=== PATIENT | male | born 1960 | race Caucasian/White ===

== ENCOUNTER 2019-06-10 14:53 | Outpatient (REF) | payer BC, SELFPAY ==
[2019-06-10 22:24] LABS: COMMENT (LAB VIEW ONLY) 81.21 mg/dL; Microalb ug/mg Crea 20.4 ug/mg Cr
[2019-06-10 22:45] LABS: ALT 33 U/L (16-63); AST 26 U/L (15-37); Albumin 4.4 g/dL (3.4-5.0); Alkaline Phosphatase 80 U/L (46-116); Anion Gap 7.8 mmol/L (3-11); BUN 14 mg/dL (7-18); Bilirubin, Total 0.6 mg/dL (0.2-1.0); CO2 31.2 mmol/L (21.0-32.0); CREATININE 0.78 mg/dL (0.70-1.30); Calcium 9.3 mg/dL (8.5-10.1); Calculated LDL 112 mg/dL; Chloride 103 mmol/L (98-107); Cholesterol 196 mg/dL (50-200); Glucose 101 mg/dL (70-100); HDL Cholesterol 78 mg/dL (40-60); Sodium 142 mmol/L (136-145); TSH 2.19 uIU/mL (0.36-3.74); Total Protein 8.1 g/dL (6.4-8.2); Triglyceride 30 mg/dL (30-150); Vitamin B12 308 pg/mL (193-986)
[2019-06-10 23:13] LABS: Folate > 20.0 ng/mL (8.6-20.0)
[2019-06-12 11:11] LABS: Hepatitis B Surface Ag Negative (Negative)
[2019-06-12 11:13] LABS: Hep B Core Antibody Negative (Negative)
== END 2019-06-10 15:13 ==
LOC: NCHCN 14:53
PROVIDERS: PCP Family Medicine; Visit Provider Nurse Practitioner Family
DX: R31.9 Hematuria, unspecified (principal); I10 Essential (primary) hypertension
CPT/HCPCS: 80053; 80061; 86704; 87340; 82043; 82570; 82607; 82746; 84443; 87086

== ENCOUNTER 2019-08-27 17:34 | Outpatient (REF) | payer BC, SELFPAY ==
[2019-08-27 22:01] LABS: Anion Gap 7.7 mmol/L (3-11); BUN 27 mg/dL (7-18); CO2 32.3 mmol/L (21.0-32.0); CREATININE 0.77 mg/dL (0.70-1.30); Calcium 8.9 mg/dL (8.5-10.1); Chloride 103 mmol/L (98-107); Glucose 87 mg/dL (74-106); Potassium 4.2 mmol/L (3.5-5.1); Sodium 143 mmol/L (136-145); Vitamin B12 439 pg/mL (193-986)
== END 2019-08-27 17:54 ==
LOC: NCHCN 17:34
PROVIDERS: PCP Family Medicine; Visit Provider Nurse Practitioner Family
DX: E53.8 Deficiency of other specified B group vitamins (principal); I10 Essential (primary) hypertension
CPT/HCPCS: 80048; 85027; 82607

== ENCOUNTER 2019-09-02 14:39 | Outpatient (REF) | payer BC, SELFPAY ==
[2019-09-02 22:17] LABS: HGB 13.9 g/dL (13.5-17.5); Mean Corp. HGB Concentration 33.9 g/dL (32.0-36.0); Mean Corpuscular Hemoglobin 34.3 pg (27.0-33.0); Mean Corpuscular Volume 101.2 fL (80-95); Platelet Count 219 x1000/uL (130-400); RBC 4.05 m/cumm (4.50-6.00); RBC Distribution Width 11.8 % (11.8-14.1); White Blood Cell Count 3.52 k/cumm (4.4-10.8)
[2019-09-02 22:42] LABS: BUN 21 mg/dL (7-18); CREATININE 0.65 mg/dL (0.70-1.30); Calcium 9.1 mg/dL (8.5-10.1); Chloride 104 mmol/L (98-107); Glucose 107 mg/dL (74-106); Potassium 4.3 mmol/L (3.5-5.1); Sodium 142 mmol/L (136-145)
== END 2019-09-02 14:59 ==
LOC: NCHCN 14:39
PROVIDERS: PCP Family Medicine; Visit Provider Nurse Practitioner Family
DX: I10 Essential (primary) hypertension (principal); E53.8 Deficiency of other specified B group vitamins
CPT/HCPCS: 80048; 85027

== ENCOUNTER 2020-01-12 18:42 | Outpatient (REF) | payer BC, SELFPAY ==
[2020-01-12 22:09] LABS: HCT 41.4 % (40.0-50.0); HGB 14.2 g/dL (13.5-17.5); Mean Corp. HGB Concentration 34.3 g/dL (32.0-36.0); Mean Corpuscular Hemoglobin 34.3 pg (27.0-33.0); Mean Platelet Volume 10.1 fL (8.0-11.0); Platelet Count 225 x1000/uL (130-400); RBC 4.14 m/cumm (4.50-6.00); RBC Distribution Width 11.7 % (11.8-14.1); White Blood Cell Count 3.68 k/cumm (4.4-10.8)
[2020-01-14 09:51] LABS: HIV-1/2 Ag & Ab Screen Negative (Negative)
[2020-01-14 10:58] LABS: Hepatitis C Ab w Rflx HCV PCR Negative (Negative)
== END 2020-01-12 19:02 ==
LOC: NCHCN 18:42
PROVIDERS: PCP Family Medicine; Visit Provider Nurse Practitioner Family
DX: D72.819 Decreased white blood cell count, unspecified (principal); Z11.4 Encounter for screening for human immunodeficiency virus [HIV]; Z11.59 Encounter for screening for other viral diseases
CPT/HCPCS: 85027; 86803; 87389

== ENCOUNTER 2020-06-13 10:41 | Outpatient (REF) | payer BC, SELFPAY ==
[2020-06-13 21:11] LABS: Absolute Basophil Count 0.02 10^3/uL (0.0-0.2); Absolute Eosinophil Count 0.02 10^3/uL (0.0-0.7); Absolute Lymphocyte Count 0.77 10^3/uL (1.2-3.4); Absolute Monocyte Count 0.16 10^3/uL (0.1-0.8); Absolute Neutrophil Count 1.36 10^3/uL (1.2-6.7); Basophils % 0.9; Eosinophils % 0.9; HCT 40.8 % (40.0-50.0); HGB 13.6 g/dL (13.5-17.5); MCH 33.8 pg (27.0-33.0); MCHC 33.3 % (32.0-36.0); MCV 101.5 fL (80-95); MPV 10.7 fL (8.0-11.0); Monocytes % 6.9; Neutrophils % 58.3; Nucleated RBC 0 %; Platelet Count 172 10^3/uL (130-400); RBC 4.02 10^6/uL (4.36-5.78); RDW 11.6 % (11.8-14.1); RDW-SD 43.4 fL; WBC 2.33 10^3/uL (4.4-10.8)
[2020-06-13 21:39] LABS: Calculated LDL 90 mg/dL (<100); Cholesterol 174 mg/dL (<200); HDL Cholesterol 77 mg/dL (40-60); Triglyceride 36 mg/dL (<150)
[2020-06-16 10:31] LABS: Ferritin 98 ng/mL (26-388)
== END 2020-06-13 11:01 ==
LOC: NCHCN 10:41
PROVIDERS: PCP Family Medicine; Visit Provider Nurse Practitioner Family
DX: D72.819 Decreased white blood cell count, unspecified (principal); I10 Essential (primary) hypertension; Z13.220 Encounter for screening for lipoid disorders
CPT/HCPCS: 80061; 82728; 85025

== ENCOUNTER 2020-06-16 09:08 | Outpatient (REF) | payer BC, SELFPAY ==
[2020-06-16 22:07] LABS: ALT 26 U/L (16-63); AST 20 U/L (15-37); Albumin 4.2 g/dL (3.4-5.0); Alkaline Phosphatase 64 U/L (46-116); Anion Gap 10.6 mmol/L (3-11); BUN 24 mg/dL (7-18); Bilirubin, Total 0.6 mg/dL (0.2-1.0); CO2 27.4 mmol/L (21.0-32.0); CREATININE 0.78 mg/dL (0.70-1.30); Chloride 103 mmol/L (98-107); Folate 19.5 ng/mL (8.6-20.0); Glucose 111 mg/dL (74-106); Potassium 4.6 mmol/L (3.5-5.1); Sodium 141 mmol/L (136-145); TSH (W/Ref FT4) 0.87 uIU/mL (0.36-3.74); Total Protein 7.3 g/dL (6.4-8.2); Vitamin B12 1963 pg/mL (193-986)
[2020-06-20 15:25] LABS: PSA, Screening 0.4 ng/mL (0-4.5)
== END 2020-06-16 09:28 ==
LOC: NCHCN 09:08
PROVIDERS: PCP Family Medicine; Visit Provider Nurse Practitioner Family
DX: I10 Essential (primary) hypertension (principal); D72.819 Decreased white blood cell count, unspecified; E53.8 Deficiency of other specified B group vitamins; Z13.29 Encounter for screening for other suspected endocrine disorder; Z12.5 Encounter for screening for malignant neoplasm of prostate
CPT/HCPCS: 80053; 84153; 82607; 82746; 84443

== ENCOUNTER 2020-06-27 20:03 | Outpatient (REF) | payer BC, SELFPAY ==
[2020-06-27 21:24] LABS: Anion Gap 5.1 mmol/L (3-11); BUN 25 mg/dL (7-18); CO2 30.9 mmol/L (21.0-32.0); Calcium 8.9 mg/dL (8.5-10.1); Chloride 103 mmol/L (98-107); Glucose 86 mg/dL (74-106); Potassium 4.3 mmol/L (3.5-5.1); Sodium 139 mmol/L (136-145)
[2020-06-27 21:30] LABS: Hemoglobin A1C 5.3 % (<5.7)
== END 2020-06-27 20:23 ==
LOC: NCHCN 20:03
PROVIDERS: PCP Family Medicine; Visit Provider Nurse Practitioner Family
DX: I10 Essential (primary) hypertension (principal); R73.9 Hyperglycemia, unspecified
CPT/HCPCS: 80048; 83036

== ENCOUNTER 2020-08-01 19:16 | Outpatient (REF) | payer BC, SELFPAY ==
[2020-08-01 20:05] LABS: HCT 39.9 % (40.0-50.0); HGB 13.4 g/dL (13.5-17.5); MCH 34.4 pg (27.0-33.0); MCHC 33.6 % (32.0-36.0); MCV 102.3 fL (80-95); MPV 10.4 fL (8.0-11.0); Platelet Count 183 10^3/uL (130-400); RDW 11.6 % (11.8-14.1); RDW-SD 43.5 fL; WBC 3.59 10^3/uL (4.4-10.8)
[2020-08-01 20:34] LABS: ALT 38 U/L (16-63); AST 27 U/L (15-37); Albumin 4.1 g/dL (3.4-5.0); Alkaline Phosphatase 64 U/L (46-116); Anion Gap 7.6 mmol/L (3-11); BUN 26 mg/dL (7-18); Bilirubin, Total 0.5 mg/dL (0.2-1.0); CO2 28.4 mmol/L (21.0-32.0); CREATININE 0.71 mg/dL (0.70-1.30); Calcium 8.9 mg/dL (8.5-10.1); Calculated LDL 57 mg/dL (<100); Chloride 103 mmol/L (98-107); Cholesterol 136 mg/dL (<200); Glucose 81 mg/dL (74-106); HDL Cholesterol 73 mg/dL (40-60); Potassium 4.4 mmol/L (3.5-5.1); Sodium 139 mmol/L (136-145); Total Protein 7.2 g/dL (6.4-8.2); Triglyceride 33 mg/dL (<150)
== END 2020-08-01 19:36 ==
LOC: NCHCN 19:16
PROVIDERS: PCP Family Medicine; Visit Provider Nurse Practitioner Family
DX: Z00.00 Encounter for general adult medical examination without abnormal findings (principal); I10 Essential (primary) hypertension; R68.89 Other general symptoms and signs
CPT/HCPCS: 80053; 80061; 85027

== ENCOUNTER 2020-09-05 16:59 | Outpatient (REF) | payer BC, SELFPAY ==
[2020-09-05 22:03] LABS: MCH 34.2 pg (27.0-33.0); MCHC 34.2 % (32.0-36.0); MPV 10.8 fL (8.0-11.0); Platelet Count 188 10^3/uL (130-400); RDW 11.9 % (11.8-14.1); RDW-SD 43.6 fL; WBC 3.45 10^3/uL (4.4-10.8)
[2020-09-05 22:26] LABS: Hemoglobin A1C 5.3 % (<5.7)
[2020-09-05 22:55] LABS: Folate 18.8 ng/mL (8.6-20.0)
[2020-09-05 23:09] LABS: TSH 1.23 uIU/mL (0.36-3.74); Vitamin B12 1876 pg/mL (193-986)
[2020-09-07 15:25] LABS: Albumin 61.8 % (55.8-66.1); Immunotyping, Serum (See Note); Total Protein 7.1 g/dL (6.3-8.2)
[2020-09-10 01:01] LABS: Thiamine (Vitamin B1), WB 97 nmol/L (70-180)
== END 2020-09-05 17:00 | disposition home or self-care (01) ==
LOC: NCHCN 16:59
PROVIDERS: Psychiatry & Neurology Neurology; PCP Family Medicine; Visit Provider Nurse Practitioner Family
DX: G60.9 Hereditary and idiopathic neuropathy, unspecified (principal); R79.0 Abnormal level of blood mineral; R20.2 Paresthesia of skin; I73.00 Raynaud's syndrome without gangrene
CPT/HCPCS: 85027; 82607; 82746; 83036; 84155; 84165; 84425; 84443; 86320

== ENCOUNTER 2021-06-12 13:28 | Outpatient (REF) | payer BC, SELFPAY ==
[2021-06-13 17:45] LABS: PSA, Screening 0.4 ng/mL (0.0-4.5)
== END 2021-06-12 13:29 | disposition home or self-care (01) ==
LOC: NCHCN 13:28
PROVIDERS: PCP Family Medicine; Visit Provider Nurse Practitioner Family
DX: Z12.5 Encounter for screening for malignant neoplasm of prostate (principal)
CPT/HCPCS: 84153

== ENCOUNTER 2022-07-02 20:53 | Outpatient (REF) | payer BC, SELFPAY ==
[2022-07-02 21:21] LABS: Abs Immature Grans 0.01 10^3/uL (0.0-0.06); Absolute Basophil Count 0.02 10^3/uL (0.0-0.2); Absolute Eosinophil Count 0.04 10^3/uL (0.0-0.7); Absolute Lymphocyte Count 1.06 10^3/uL (1.2-3.4); Absolute Monocyte Count 0.31 10^3/uL (0.1-0.8); Absolute Neutrophil Count 2.24 10^3/uL (1.2-6.7); Basophils % 0.5; Eosinophils % 1.1; HGB 14.1 g/dL (13.5-17.5); Immature Grans % 0.3; Lymphocytes % 28.8; MCH 34.8 pg (27.0-33.0); MCHC 34.4 % (32.0-36.0); MCV 101 fL (80-95); MPV 10.1 fL (8.0-11.0); Monocytes % 8.4; Neutrophils % 60.9; Platelet Count 160 10^3/uL (130-400); RBC 4.05 10^6/uL (4.36-5.78); RDW 11.9 % (11.8-14.1); WBC 3.68 10^3/uL (4.4-10.8)
[2022-07-02 21:40] LABS: ALT 45 U/L (16-63); AST 34 U/L (15-37); Albumin 4.1 g/dL (3.4-5.0); Alkaline Phosphatase 86 U/L (46-116); Anion Gap 6.9 mmol/L (3-11); BUN 24 mg/dL (7-18); Bilirubin, Total 0.5 mg/dL (0.2-1.0); CO2 30.1 mmol/L (21.0-32.0); CREATININE 0.7 mg/dL (0.70-1.30); Calcium 9.1 mg/dL (8.5-10.1); Calculated LDL 59 mg/dL (<100); Chloride 104 mmol/L (98-107); Cholesterol 137 mg/dL (<200); Estimated GFR 103.53 (mL/min/1.73m2); Glucose 93 mg/dL (74-106); HDL Cholesterol 70 mg/dL (40-60); Potassium 4.2 mmol/L (3.5-5.1); Sodium 141 mmol/L (136-145); Total Protein 7.6 g/dL (6.4-8.2); Triglyceride 40 mg/dL (<150)
== END 2022-07-02 20:54 | disposition home or self-care (01) ==
LOC: NCHCN 20:53
PROVIDERS: PCP Family Medicine; Visit Provider Nurse Practitioner Family
DX: I10 Essential (primary) hypertension (principal); Z00.00 Encounter for general adult medical examination without abnormal findings; D64.9 Anemia, unspecified; D72.819 Decreased white blood cell count, unspecified
CPT/HCPCS: 80053; 80061; 85025

== ENCOUNTER 2024-01-24 13:04 | Outpatient (REF) | payer MEDICARE, BC, SELFPAY ==
[2024-01-24 16:14] LABS: Abs Immature Grans 0.01 10^3/uL (0.0-0.06); Absolute Basophil Count 0.02 10^3/uL (0.0-0.2); Absolute Eosinophil Count 0.03 10^3/uL (0.0-0.7); Absolute Lymphocyte Count 0.82 10^3/uL (1.2-3.4); Absolute Monocyte Count 0.22 10^3/uL (0.1-0.8); Absolute Neutrophil Count 1.72 10^3/uL (1.2-6.7); Basophils % 0.7 %; Eosinophils % 1.1 %; HCT 40.8 % (40.0-50.0); HGB 14.2 g/dL (13.5-17.5); Immature Grans % 0.4 %; Lymphocytes % 29.1 %; MCH 35.5 pg (27.0-33.0); MCHC 34.8 % (32.0-36.0); MCV 102 fL (80-95); MPV 10.9 fL (8.0-11.0); Monocytes % 7.8 %; Neutrophils % 60.9 %; Platelet Count 176 10^3/uL (130-400); RDW 11.8 % (11.8-14.1); RDW-SD 44.2 fL; WBC 2.82 10^3/uL (4.4-10.8)
[2024-01-24 16:53] LABS: ALT 42 U/L (16-63); AST 31 U/L (15-37); Alkaline Phosphatase 93 U/L (46-116); Anion Gap 5.4 mmol/L (3-11); BUN 22 mg/dL (7-18); Bilirubin, Total 0.89 mg/dL (0.2-1.0); CO2 30.6 mmol/L (21.0-32.0); CREATININE 0.7 mg/dL (0.70-1.30); Calcium 8.8 mg/dL (8.5-10.1); Chloride 105 mmol/L (98-107); Estimated GFR 102.25 (mL/min/1.73m2); Folate 14.8 ng/mL (8.6-20.0); Glucose 106 mg/dL (74-106); Potassium 4.7 mmol/L (3.5-5.1); Sodium 141 mmol/L (136-145); Total Protein 7.4 g/dL (6.4-8.2); Vitamin B12 671 pg/mL (193-986)
== END 2024-01-24 13:05 | disposition home or self-care (01) ==
LOC: NCHCN 13:04
PROVIDERS: PCP Family Medicine; Visit Provider Family Medicine
DX: E53.8 Deficiency of other specified B group vitamins (principal); I10 Essential (primary) hypertension; D64.9 Anemia, unspecified; D72.819 Decreased white blood cell count, unspecified
CPT/HCPCS: 80053; 82607; 82746; 85025

== ENCOUNTER 2024-01-27 18:32 | Outpatient (REF) | payer MEDICARE, SELFPAY ==
[2024-01-27 15:45] LABS: Calculated LDL 64 mg/dL (<100); Cholesterol 155 mg/dL (<200); HDL Cholesterol 83 mg/dL (40-60); Triglyceride 40 mg/dL (<150)
[2024-01-27 23:18] LABS: PSA, Screening 0.5 ng/mL (<=4.5)
== END 2024-01-27 18:33 | disposition home or self-care (01) ==
LOC: NCHCN 18:32
PROVIDERS: PCP Family Medicine; Visit Provider Family Medicine
DX: I10 Essential (primary) hypertension (principal); Z12.5 Encounter for screening for malignant neoplasm of prostate; Z13.6 Encounter for screening for cardiovascular disorders
CPT/HCPCS: 80061; 84153

== ENCOUNTER 2024-10-09 12:25 | Outpatient (REF) | payer MEDICARE, SELFPAY ==
[2024-10-09 14:30] LABS: Absolute Basophil Count 0.03 10^3/uL (0.0-0.2); Absolute Eosinophil Count 0.02 10^3/uL (0.0-0.7); Absolute Lymphocyte Count 0.81 10^3/uL (1.2-3.4); Absolute Neutrophil Count 1.98 10^3/uL (1.2-6.7); Eosinophils % 0.7 %; HCT 43.6 % (40.0-50.0); HGB 14.8 g/dL (13.5-17.5); Lymphocytes % 26.6 %; MCH 34.9 pg (27.0-33.0); MCHC 33.9 % (32.0-36.0); MCV 103 fL (80-95); Monocytes % 6.6 %; Neutrophils % 65.1 %; Platelet Count 176 10^3/uL (130-400); RBC 4.24 10^6/uL (4.36-5.78); RDW 11.6 % (11.8-14.1); WBC 3.04 10^3/uL (4.4-10.8)
[2024-10-09 14:41] LABS: Iron 160 ug/dL (65-175)
[2024-10-09 15:12] LABS: ALT 32 U/L (16-63); AST 30 U/L (15-37); Albumin 4.3 g/dL (3.4-5.0); Alkaline Phosphatase 87 U/L (46-116); Anion Gap 5.9 mmol/L (3-11); BUN 20 mg/dL (7-18); Bilirubin, Total 0.8 mg/dL (0.2-1.0); CO2 32.1 mmol/L (21.0-32.0); CREATININE 0.7 mg/dL (0.70-1.30); Calcium 9.4 mg/dL (8.5-10.1); Chloride 105 mmol/L (98-107); Estimated GFR 102.25 (mL/min/1.73m2); Folate 18.8 ng/mL (8.6-20.0); Glucose 110 mg/dL (74-106); Potassium 4.4 mmol/L (3.5-5.1); Sodium 143 mmol/L (136-145); Total Protein 7.9 g/dL (6.4-8.2)
[2024-10-09 15:13] LABS: Vitamin B12 > 2000 pg/mL (193-986)
== END 2024-10-09 12:26 | disposition home or self-care (01) ==
LOC: NCHCN 12:25
PROVIDERS: PCP Family Medicine; Visit Provider Physician Assistant
DX: G62.9 Polyneuropathy, unspecified (principal)
CPT/HCPCS: 80053; 82607; 82746; 83540; 85025

== ENCOUNTER 2025-04-15 16:01 | Outpatient (REF) | payer MEDICARE, SELFPAY ==
[2025-04-15 21:00] LABS: Anion Gap 4.6 mmol/L (3-11); BUN 16 mg/dL (7-18); CO2 32.4 mmol/L (21.0-32.0); Calcium 9.3 mg/dL (8.5-10.1); Chloride 105 mmol/L (98-107); Estimated GFR 97.61 (mL/min/1.73m2); Glucose 96 mg/dL (74-106); Potassium 3.9 mmol/L (3.5-5.1); Sodium 142 mmol/L (136-145); Vitamin B12 482 pg/mL (193-986)
== END 2025-04-15 16:02 | disposition home or self-care (01) ==
LOC: NCHCN 16:01
PROVIDERS: PCP Family Medicine; Visit Provider Family Medicine
DX: I10 Essential (primary) hypertension (principal); E53.9 Vitamin B deficiency, unspecified
CPT/HCPCS: 80048; 82607